=== PATIENT | female | born 1990 | race Hispanic/Latino ===

== ENCOUNTER 2017-08-29 02:12 | Emergency (ER) | payer BC ==
[2017-08-29 02:37] VITALS: BP 114/69; PULSE 68; RESP 16; TEMP 98; O2SAT 98
[2017-08-29] MEDS ORDERED: Bacitracin OINT 15GM TOP STA (02:59)
--- NOTE | 2017-08-29 03:18 | ED PDOC ---
HPI: General Adult Time Seen by Provider: 08/29/17 02:37 Chief Complaint (Nursing): Abnormal Skin Integrity History Per: Patient Additional Complaint(s): Pt. states earlier today she tripped and fell striking her chin to the ground. Reports no LOC. As per her boyfriend who witnessed the event pt. did not lose consciousness. Denies anticoagulant use, jaw pain, LOC, N/V, previous TBI, hx of seizures. Past Medical History Reviewed: Historical Data, Nursing Documentation, Vital Signs Vital Signs: Last Vital Signs Temp 98 F 08/29/17 02:33 Pulse 68 08/29/17 02:33 Resp 16 08/29/17 02:33 BP 114/69 08/29/17 02:33 Pulse Ox 98 08/29/17 04:00 - Family History Family History: States: No Known Family Hx - Allergies Allergies/Adverse Reactions: Allergies Allergy/AdvReac Type Severity Reaction Status Date / Time No Known Allergies Allergy Verified 08/29/17 02:33 Review of Systems ROS Statement: Except As Marked, All Systems Reviewed And Found Negative Physical Exam - Physical Exam Appears: Positive for: Well, Non-toxic, No Acute Distress Head Exam: Positive for: ATRAUMATIC, NORMAL INSPECTION, NORMOCEPHALIC Skin: Positive for: Normal Color, Warm. Negative for: Rash Eye Exam: Positive for: EOMI, Normal appearance, PERRL ENT: Positive for: Normal ENT Inspection, TM Is/Are (no hemotympanum b/l), Other (superficial abrasion noted on chin; no malocclusion) Neck: Positive for: Normal, Painless ROM Respiratory: Negative for: Respiratory Distress Back: Positive for: Normal Inspection. Negative for: Vertebral Tenderness (no cervical tenderness) Extremity: Positive for: Normal ROM Neurologic/Psych: Positive for: Alert, Oriented, Gait (steady unassisted ) - ECG O2 Sat by Pulse Oximetry: 98 - Progress ED Course And Treament: Abrasion cleansed and dressed by RN. Bacitracin ointment applied. Disposition - Clinical Impression Clinical Impression: Head injury - Patient ED Disposition Is Patient to be Admitted: No - Disposition Disposition: Routine/Home Disposition Time: 03:24 Condition: STABLE Instructions: Head Injury (ED), Abrasion (ED) Forms: [employer] (Welsh) Print Language: POLISH
== END 2017-08-29 03:24 | disposition home or self-care (01) ==
LOC: H.ER 02:12
DX: S00.81XA Abrasion of other part of head, initial encounter (principal); W01.0XXA Fall on same level from slipping, tripping and stumbling without subsequent striking against object, initial encounter; Y92.89 Other specified places as the place of occurrence of the external cause